=== PATIENT | female | born 1995 | race Caucasian/White ===

== ENCOUNTER 2017-05-24 20:08 | Emergency (ER) | payer OTHER ==
[~2017-05-24] VITALS: Ht 165.1 cm; Wt 57.6 kg
[2017-05-24 21:03] LABS: HEMATOCRIT 39.1 % (36.0-46.0); HEMOGLOBIN 13.1 G/DL (11.9-15.5); MCH 29.3 PG (29.0-34.0); MCHC 33.5 G/DL (30.0-36.0); MCV 87.5 FL (83-99); PLATELET COUNT 206 K/uL (156-360); RBC DIS.WIDTH-SD 39.1 % (39-53); RED BLOOD COUNT 4.47 M/uL (3.80-5.20); WHITE BLOOD COUNT 5.2 K/uL (4.1-10.2)
[2017-05-24 21:14] LABS: CHLORIDE 108 mEq/L (99-109); POTASSIUM 3.5 mEq/L (3.7-5.4); SODIUM 141 mEq/L (136-147)
[2017-05-24 21:15] LABS: GLUCOSE 137 mg/dL (70-99)
[2017-05-24 21:19] LABS: CREATININE 0.8 mg/dL (0.6-1.3); GFR ESTIMATE (CALCULATED) > 59 mL/min/
[2017-05-24 21:20] LABS: UREA NITROGEN (BUN) 9 mg/dL (9-23)
[2017-05-24 21:28] LABS: QUANTITATIVE HCG < 4.0 MIU/ML; TROP-I INTERPRETATION NEGATIVE; TROPONIN-I < 0.01 ng/mL (0.0-0.30)
[2017-05-24 22:25] VITALS: BP 117/73
[2017-05-24 22:25] LABS: THYROTROPIN (TSH) 1.3 MIU/L (0.4-5.5)
== END 2017-05-24 22:30 | disposition home or self-care (01) ==
LOC: EME 20:08
PROVIDERS: Physician Assistant Medical
DX: R07.89 Other chest pain (principal)
CPT/HCPCS: 71046; 80048; 84443; 84484; 84702; 85027; 93005; 99281; 99285; J7030; Q0177